=== PATIENT | male | born 1975 | race Caucasian/White ===

== ENCOUNTER 2020-06-07 10:13 | Emergency (ER) | payer OTHER ==
[2020-06-07 10:21] VITALS: BP 143/93; PULSE 107; RESP 16; TEMP 98.8
--- NOTE | 2020-06-07 10:36 | ED ---
Skin/Abscess/FB HPI - General Chief complaint: Skin/Abscess/Foreign Body Stated complaint: sent by pcp Time Seen by Provider: 06/07/20 10:24 Source: patient, RN notes reviewed Mode of arrival: ambulatory Limitations: no limitations - History of Present Illness Initial comments: 44-year-old male presents emergency Department chief complaint of buttocks a bscess. Patient states that he's been diagnosed with a pilonodal system past. Patient states that rupturedand bikes. Patient states he had pain this week which has ruptured and drained out some. Patient states she has no pain at this time no fevers chills no pain with bowel movements. Patient states that he saw his PCP it is labwork and: Back and told him that if he sign problems he would need antibiotics and go to the emergency room for antibiotics. Patient denies any abdominal complaints. Patient states she is scheduled to see a surgeon. Patient offers no other complaints. - Related Data Previous Rx's Medication Instructions Recorded Ciprofloxacin HCl [Cipro] 500 mg PO Q12HR #20 tablet 06/07/20 metroNIDAZOLE [Flagyl] 500 mg PO TID #30 tab 06/07/20 Allergies Allergy/AdvReac Type Severity Reaction Status Date / Time No Known Allergies Allergy Verified 06/07/20 10:35 Review of Systems ROS Statement: Those systems with pertinent positive or pertinent negative responses have been documented in the HPI. ROS Other: All systems not noted in ROS Statement are negative. Past Medical History Past Medical History: Hypertension History of Any Multi-Drug Resistant Organisms: None Reported Past Surgical History: No Surgical Hx Reported Past Psychological History: No Psychological Hx Reported Smoking Status: Current every day smoker Past Alcohol Use History: Occasional Past Drug Use History: None Reported General Exam Limitations: no limitations General appearance: alert, in no apparent distress Head exam: Present: atraumatic, normocephalic, normal inspection Neck exam: Present: normal inspection. Absent: tenderness, meningismus, lymphadenopathy Respiratory exam: Present: normal lung sounds bilaterally. Absent: respiratory distress, wheezes, rales, rhonchi, stridor Cardiovascular Exam: Present: regular rate, normal rhythm, normal heart sounds. Absent: systolic murmur, diastolic murmur, rubs, gallop, clicks GI/Abdominal exam: Present: soft, normal bowel sounds. Absent: distended, tenderness, guarding, rebound, rigid Rectal exam: Absent: normal inspection (Small open wound noted, no rectal tendernessand erythema) Neurological exam: Present: alert, oriented X3 Skin exam: Present: warm, dry, intact, normal color. Absent: rash Course Vital Signs 06/07/20 10:18 Temperature 98.8 F Pulse Rate 107 H Respiratory 16 Rate Blood Pressure 143/93 O2 Sat by Pulse 97 Oximetry Medical Decision Making - Medical Decision Making 43-year-old male presented for abscess. This appears to buttocks abscess rather than pilonodal cyst or rectal abscess patient has no current pain, fevers chills and no statement erythema. Patient was placed on antibiotics he has an appointment with surgeon he is advised to return for any worsening changing symptoms. Patient received plan of discharge. Disposition Clinical Impression: Abscess of buttock Disposition: HOME SELF-CARE Condition: Stable Instructions (If sedation given, give patient instructions): Abscess (ED) Additional Instructions: Please return to the Emergency Department if symptoms worsen or any other concerns. Prescriptions: Ciprofloxacin HCl [Cipro] 500 mg PO Q12HR #20 tablet metroNIDAZOLE [Flagyl] 500 mg PO TID #30 tab Is patient prescribed a controlled substance at d/c from ED?: No Referrals: [facility],Clinic [Primary Care Provider] - 1-2 days Osiel Hamilton MD [Medical Doctor] - 1-2 days Time of Disposition: 10:36
== END 2020-06-07 10:56 | disposition home or self-care (01) ==
LOC: EC 10:13
DX: L02.31 Cutaneous abscess of buttock (principal); F17.200 Nicotine dependence, unspecified, uncomplicated
CPT/HCPCS: 99283